=== PATIENT | male | born 1960 | race Caucasian/White ===

== ENCOUNTER 2016-12-07 16:41 | Emergency (ER) | payer OTHER ==
[~2016-12-07] VITALS: Ht 167.6 cm; Wt 85.5 kg
[2016-12-07] MEDS ORDERED: SKELAXIN800 MG PO (20:23)
[2016-12-07 22:21] VITALS: BP 125/89
== END 2016-12-07 22:22 | disposition home or self-care (01) ==
LOC: EME 16:41
DX: S16.1XXA Strain of muscle, fascia and tendon at neck level, initial encounter (principal); V49.40XA Driver injured in collision with unspecified motor vehicles in traffic accident, initial encounter
CPT/HCPCS: 72040; 72125; 99281; 99284